=== PATIENT | male | born 1955 | race American Indian/Alaskan Native ===

== ENCOUNTER 2020-03-03 19:26 | Inpatient (IN) | payer MEDICAID ==
[2020-03-04 00:35] VITALS: BP 117/75
[2020-03-04] MEDS ORDERED: Magnesium Hydroxide (MOM) 30 mL UDC PO PRN (00:36)
[2020-03-04] MEDS ORDERED: Maalox 30 mL Cup PO PRN (00:36)
[2020-03-04] MEDS: Multivitamin Tab PO SCH ×2 (10:17→10:19)
--- NOTE | 2020-03-04 11:42 | History & Physical ---
ADMIT DATE: 03/04/2020 CHIEF COMPLAINT: Agitation. HISTORY OF PRESENT ILLNESS: We have a 64-year-old male, who is transferred from [facility] for continued management of agitation. The patient apparently is homeless. The patient was found to have encephalopathy, hypernatremia, confusion and renal insufficiency. At this time, the patient does not want to talk, but he does respond to commands. PAST MEDICAL HISTORY: Hypertension. PAST SURGICAL HISTORY: None. MEDICATIONS: List reviewed. ALLERGIES: None. SOCIAL HISTORY: Not cooperative. REVIEW OF SYSTEMS: Not cooperative. PHYSICAL EXAMINATION: VITAL SIGNS: Temperature is 97.2, pulse 80, respirations 20, blood pressure 122/78 and pulse ox is 97% on room air. HEENT: Normocephalic, atraumatic head exam. NECK: Supple. CARDIOVASCULAR: Regular rate and rhythm. LUNGS: Decreased breath sounds. ABDOMEN: Soft. EXTREMITIES: No edema, cyanosis or clubbing. NEUROLOGIC: Cranial nerves 2 through 12 was difficult to perform due to lack of cooperation. ASSESSMENT: 1. Status post encephalopathy. 2. Renal failure. 3. Hypertension. PLAN: The patient will continue with medications. The patient will continue azithromycin. The patient will continue with DuoNeb. The patient will get stat labs. JOB# [id number]
[2020-03-04 16:03] LABS: RED BLOOD COUNT 4.64 MIL/uL (4.2-6.2); WHITE BLOOD COUNT 6.2 K/uL (4.8-10.8)
[2020-03-04 16:14] LABS: % NEUTROPHILS 66.3 % (40.0-80.0); HEMOGLOBIN 14.8 gm/dL (12-16); LYMPHOCYTES % (AUTO) 22.7 % (20.0-50.0); MEAN CORPUSCULAR HEMOGLOBIN 31.8 pg (26.0-30.0); MEAN CORPUSCULAR HGB CONC 34.4 pg (28.0-36.0); MEAN CORPUSCULAR VOLUME 92.7 fl (80-99); MONOCYTES % (AUTO) 10.1 % (2.0-10.0); PLATELET COUNT 233 Th/cmm (150-400); RED CELL DISTRIBUTION WIDTH 12.2 % (11.5-20.0)
[2020-03-04 16:15] LABS: BASOPHILS % (AUTO) 0.4 % (0.0-2.0); EOSINOPHILS % (AUTO) 0.5 % (0.0-5.0); LYMPHOCYTES # (AUTO) 1.4 Th/cmm (1.5-3.0); MONOCYTES # (AUTO) 0.6 Th/cmm (0.3-1.0); NEUTROPHILS # (AUTO) 4.1 Th/cmm (1.8-8.0)
[2020-03-04 16:38] LABS: CHOLESTEROL 184 mg/dL (<200); LDL CHOLESTEROL 103 mg/dL (75-193); TRIGLYCERIDES 286 mg/dL (<150)
--- NOTE | 2020-03-04 17:54 | Psychiatric Evaluation ---
DATE OF SERVICE: 03/03/2020 PSYCHIATRIC INITIAL EVALUATION AND MENTAL STATUS EXAM AGE: 64. SEX: Male. PHYSICIAN: Dr. Gamez. CHIEF COMPLAINT: 5150 hold for grave disability, also for dangers to self. HISTORY OF PRESENT ILLNESS: The patient is a 64-year-old male who was placed on 5150 hold for grave disability. The patient was lying naked on his bathroom floor for 10 days by the landlord's report to the person who put him on a 5150 hold. Also, neighbor gave the patient food and water, but the patient not eating or drinking. The patient also stopped speaking and told the person who evaluated him that "life not worth living and I cannot make it through the day." The patient has been also living in a hotel for 2-3 years. Also, it was reported that he has been asking neighbors and landlord for a gun or knife according to the hold. Chart reviewed and the patient interviewed and discussed the patient's condition with the staff and reviewed records and labs. The patient has history of alcohol abuse. The patient is currently hardly talks and hardly gives any information about himself. Apparently, he was found down in the bathroom by the landlord and the patient was confused and the patient is still confused. He is still poor historian and I could not get any information from the patient in detail. PAST PSYCHIATRIC HISTORY: Not known. PAST MEDICAL HISTORY: The patient was admitted with altered level of conscious. He has elevated lactate and also acute renal failure as well as hypercalcemia and deep vein thrombosis. SOCIAL HISTORY: The patient said that he has never and has no family and no children. He has history of alcohol use. No other information known at this time. ALLERGIES: No known allergies. MENTAL STATUS EXAMINATION: The patient appears much older than stated age. Disheveled. Seems to be dehydrated. Thought processes are with poverty of speech and disorganized. The patient did not answer question regarding hallucinations or delusions or regarding suicide or homicide at this time, but he admitted that he wanted to kill himself and was asking people for a knife or a gun according to the hold. The patient is alert, but seems to be disoriented to time, place, person, and situation. Unable to assess his memory at this time because the patient is a poor historian and unable to answer questions. Poor insight and judgment. Unable to assess his intelligence or concentration, but his concentration seems to be much impaired and seems to be distracted. ASSESSMENT: PRIMARY DIAGNOSIS: Depressive mood disorder, unspecified. SECONDARY DIAGNOSIS: Rule out dementia. TREATMENT PLAN: We will monitor the patient's behavior and condition closely. We will start the patient on Lexapro 10 mg every day and we will monitor the dose. Also, we will try to get more information for further treatment and evaluation. ESTIMATED LENGTH OF STAY: 5-7 days. PATIENT'S STRENGTHS AND WEAKNESSES: The patient's strength is not clear at this time. Weakness is his ineffective coping and his inability to care for self. AFTER DISCHARGE PLAN: The patient will need placement and outpatient treatment and followup will continue as an outpatient. CRITERIA FOR DISCHARGE: We will stabilize his condition and the patient will not be suicidal or homicidal. JOB# [id number]
--- NOTE | 2020-03-05 07:42 | Progress Notes ---
DATE: 03/05/2020 SUBJECTIVE: A 64-year-old male placed on a hold for grave disability, was lying naked on his bathroom floor for 10 days by the landlord's report, neighbors had to give him food and water, not eating or drinking. He is not speaking, was making statements that life was not worth living and was very depressed, upset and despairing. On [id number], does not really want to talk to me, selectively mute, preoccupied, just stares at me. I spent some time trying to speak with him, but he just closes his eyes, appearing very down, depressed, per staff easily agitated, noncompliant with medications, does not want to take medications, believing medications will kill him, irritable, labile per staff. Medications were reviewed. Labs reviewed. Vitals were reviewed. Blood pressure 118/71, pulse of 83. ASSESSMENT: A 64-year-old male with ongoing behavioral disturbances, withdrawn, concerns for his ability to really function at a lower level of care and take care of himself. PLAN: We will continue inpatient monitoring. We will err on the side of caution, initiate a 14-day hold. JOB# [id number]
[2020-03-05] MEDS: Multivitamin Tab PO SCH (09:11)
[2020-03-06] MEDS: Multivitamin Tab PO SCH (09:27)
[2020-03-06 11:09] LABS: CALCIUM SERUM 8.6 mg/dL (8.4-10.2); CREATININE - SERUM 1.01 mg/dL (0.70-1.30); POTASSIUM SERUM 3.4 mmol/L (3.5-5.1); TOTAL PROTEIN,SERUM 6.5 g/dL (6.4-8.3)
[2020-03-06 11:10] LABS: BILIRUBIN,TOTAL 0.3 mg/dL (0.0-1.0)
--- NOTE | 2020-03-06 18:26 | Progress Notes ---
DATE: 03/06/2020 SUBJECTIVE: Chart was reviewed and the patient interviewed. Also discussed the patient's condition with the staff and reviewed records and labs. The patient is staying in bed all the time and he is still severely depressed. Also, during the interview, the patient had the food in front of him, but he was not eating and seems to be slightly confused at that time. The patient also is still urinating and had feces on his diapers and unable to care for himself. Also, during the interview, the patient was staring at me and he was not answering much of my questions and seems to be preoccupied and actively hallucinating. ASSESSMENT: The patient is still severely depressed and seems to be psychotic. TREATMENT PLAN: Continue to monitor behavior and condition closely. Also, continue working on his ineffective coping and adjusting his psychotropic medications and follow up closely. JOB# [id number]
[2020-03-07] MEDS: Multivitamin Tab PO SCH (09:30)
--- NOTE | 2020-03-07 19:37 | Progress Notes ---
DATE: 03/07/2020 SUBJECTIVE: Chart was reviewed and the patient interviewed. Also discussed the patient's condition with the staff and reviewed records and labs. The patient is still severely depressed. The patient also is still isolative and withdrawn and staying in his bed all the time. His appetite is still poor and he still has minimum interaction with others. The patient also still had minimum interaction and not talking much or answering questions. MENTAL STATUS EXAMINATION: Psychiatric. Depressed mood. Low tone and rate of speech. Denies any hallucinations, but seems to be preoccupied. Denies suicide or homicide, but is still unable to give any safe plan for self-care. ASSESSMENT: The patient is still depressed and is still considered to be gravely disabled. TREATMENT PLAN: Continue Lexapro same dose. Also, continue to work on his ineffective coping and follow up closely. JOB# [id number]
[2020-03-08] MEDS: Multivitamin Tab PO SCH (08:28)
--- NOTE | 2020-03-08 19:22 | Progress Notes ---
DATE: SUBJECTIVE: Chart was reviewed and the patient interviewed. Also discussed the patient's condition with the staff and reviewed records and labs. The patient is still severely depressed. The patient also is withdrawn and interacting minimally with others. The patient is still having poor appetite and is still not eating or drinking. The patient also still seems to be preoccupied and hardly answers my questions and still looks severely depressed and seems to be suspicious and paranoid. Otherwise, the patient is compliant with taking Risperdal with no side effects. ASSESSMENT: The patient is still psychotic and is still not eating or drinking. TREATMENT PLAN: We will increase Risperdal to 1 mg twice a day. Also, we will start the patient on Lexapro 10 mg every day. Also, continue to work on his ineffective coping and his hopeless and helpless feelings. Also, encouraged the patient to get out of his isolation and interact with others. JOB# [id number]
--- NOTE | 2020-03-09 06:13 | Progress Notes ---
DATE: SUBJECTIVE: Chart reviewed and the patient interviewed. Also discussed the patient's condition with the staff and reviewed records and labs. The patient is still paranoid and suspicious and severely depressed. The patient also is still selectively mute and today he tried to answer my questions, but hardly answering the questions. The patient also is still restless and still has mood swings and has paranoia. Otherwise, the patient is compliant with taking his medications with no side effects of medications. Personal hygiene is still poor and the patient is unkempt and needs close adjustment to his medications. ASSESSMENT: The patient is still psychotic and is still severely depressed and considered to be gravely disabled. TREATMENT PLAN: We will continue to monitor his medications and his condition closely. Also, yesterday, we increased Risperdal and Lexapro. We will continue same dose and continue to work on his ineffective coping and mood swings. JOB# [id number]
[2020-03-09] MEDS: Multivitamin Tab PO SCH (09:26)
[2020-03-10] MEDS: Multivitamin Tab PO SCH (10:00)
[2020-03-10 11:54] LABS: A1C 6.3
--- NOTE | 2020-03-10 15:35 | Internal Medicine Prog Note ---
Internal Medicine Subjective - Subjective Service Date: 03/10/20 Patient seen and examined:: without staff Patient is:: awake Patient Complaints of:: congestion Per staff patient has:: no adverse event, no episodes of fall Internal Medicine Objective - Results Result Diagrams: 03/04/20 13:00 03/04/20 13:00 Recent Labs: Laboratory Last Values WBC 6.2 K/uL (4.8-10.8) 03/04/20 13:00 RBC 4.64 MIL/uL (4.2-6.2) 03/04/20 13:00 Hgb 14.8 gm/dL (12-16) 03/04/20 13:00 Hct 43.0 % (41.0-60) 03/04/20 13:00 MCV 92.7 fl (80-99) 03/04/20 13:00 MCH 31.8 pg (26.0-30.0) H 03/04/20 13:00 MCHC Differential 34.4 pg (28.0-36.0) 03/04/20 13:00 RDW 12.2 % (11.5-20.0) 03/04/20 13:00 Plt Count 233 Th/cmm (150-400) 03/04/20 13:00 MPV 8.8 fl 03/04/20 13:00 Neutrophils % 66.3 % (40.0-80.0) 03/04/20 13:00 Lymphocytes % 22.7 % (20.0-50.0) 03/04/20 13:00 Monocytes % 10.1 % (2.0-10.0) H 03/04/20 13:00 Eosinophils % 0.5 % (0.0-5.0) 03/04/20 13:00 Basophils % 0.4 % (0.0-2.0) 03/04/20 13:00 Sodium 137 mmol/L (136-145) 03/04/20 13:00 Potassium 3.4 mmol/L (3.5-5.1) L 03/04/20 13:00 Chloride 100 mmol/L (98-107) 03/04/20 13:00 Carbon Dioxide 27 mmol/L (23-29) 03/04/20 13:00 Anion Gap 13 (5-15) 03/04/20 13:00 BUN 14 mg/dL (8-21) 03/04/20 13:00 Creatinine 1.01 mg/dL (0.70-1.30) 03/04/20 13:00 Glucose 92 mg/dL (70-99) 03/04/20 13:00 POC Glucose 113 MG/DL (70 - 105) H 03/03/20 23:49 Calcium 8.6 mg/dL (8.4-10.2) 03/04/20 13:00 Total Bilirubin 0.3 mg/dL (0.0-1.0) 03/04/20 13:00 AST 45 U/L (10-37) H 03/04/20 13:00 ALT 58 U/L (12-78) 03/04/20 13:00 Alkaline Phosphatase 61 U/L (46-116) 03/04/20 13:00 Total Protein 6.5 g/dL (6.4-8.3) 03/04/20 13:00 Albumin 2.9 g/dL (3.4-5.0) L 03/04/20 13:00 Triglycerides 286 mg/dL (<150) H 03/04/20 13:00 Cholesterol 184 mg/dL (<200) 03/04/20 13:00 LDL Cholesterol Direct 103 mg/dL (75-193) 03/04/20 13:00 HDL Cholesterol 30 mg/dL (23-92) 03/04/20 13:00 - Physical Exam Vitals and I&O: Vital Signs Temp 97.9 F 03/10/20 07:02 Pulse 84 03/10/20 10:00 Resp 18 03/10/20 08:00 BP 98/62 03/10/20 10:00 Pulse Ox 98 03/10/20 07:02 Intake & Output 03/09/20 03/10/20 03/10/20 18:59 06:59 18:59 Intake Total 120 Balance 120 Intake: Oral 120 Other: # Voids 2 # Bowel Movements 0 Stool Characteristics Soft Brown Active Medications: Current Medications Acetaminophen (Tylenol) 650 mg PO Q4H PRN PRN Reason: Pain (Mild 1-3) Stop: 05/03/20 00:35 Al Hydrox/Mg Hydrox/Simethicone (Maalox) 30 ml PO Q4HR PRN PRN Reason: GI DISTRESS Stop: 05/03/20 00:35 Aspirin (Ecotrin) 81 mg PO DAILY [facility] Stop: 05/04/20 08:59 Last Admin: 03/10/20 10:00 Dose: 81 mg Azithromycin (Zithromax) 500 mg PO DAILY [facility] Stop: 05/04/20 08:59 Last Admin: 03/10/20 10:00 Dose: 500 mg Docusate Sodium (Colace) 100 mg PO BID PRN PRN Reason: Constipation Stop: 05/03/20 11:27 Escitalopram Oxalate (Lexapro) 10 mg PO DAILY [facility]; Protocol Stop: 05/07/20 08:59 Last Admin: 03/10/20 10:00 Dose: 10 mg Famotidine (Pepcid) 20 mg PO HS MARISA Stop: 05/03/20 20:59 Last Admin: 03/09/20 20:51 Dose: 20 mg Isosorbide Mononitrate (Imdur) 30 mg PO DAILY [facility] Stop: 05/04/20 08:59 Last Admin: 03/10/20 10:00 Dose: Not Given Lorazepam (Ativan) 0.5 mg PO Q4HR PRN; Protocol PRN Reason: Anxiety Stop: 04/03/20 00:35 Magnesium Hydroxide (Milk Of Magnesia) 30 ml PO HS PRN PRN Reason: Constipation Multivitamins/Vitamin C (Theragran) 1 tab PO DAILY [facility] Stop: 05/03/20 08:59 Last Admin: 03/10/20 10:00 Dose: 1 tab Risperidone (Risperdal) 1 mg PO BID [facility]; Protocol Stop: 05/07/20 08:59 Last Admin: 03/10/20 10:00 Dose: 1 mg Zolpidem Tartrate (Ambien) 5 mg PO HS PRN PRN Reason: Insomnia Stop: 05/03/20 00:35 General: weak HEENT: NC/AT Neck: Supple Lungs: CTAB Cardiovascular: RRR, Normal S1, Normal S2 Abdomen: soft Extremities: clear Internal Medicine Assmt/Plan - Assessment Assessment: 1. Diarrhea 2. Psychosis - Plan Plan: transfer to acute care hospital for treat of diarrhea rule out c. diff discussed with shayne Nutritional Asmnt/Malnutr-PDOC - Dietary Evaluation Malnutrition Findings (Please click <Entered> for more info): Nutritional Asmnt/Malnutrition Start: 03/07/20 14: 18 Text: Status: Complete Freq: Protocol: Document 03/07/20 14:18 JAYDON (Rec: 03/07/20 14:23 JAYDON [id number]) Nutritional Asmnt/Malnutrition Patient General Information Nutritional Screening Moderate Risk Diagnosis Psychosis Pertinent Medical Hx/Surgical Hx HTN Subjective Information Pt is a 64-year-old male admitted on 09/13 d/t continued management of agitation. Pt is noted to have been refusing most meals since admit date, eating 100% snacks, sometimes eating by self and sometimes with assistance. Dietary is currently providing an estimated 2500 kcals and 108 gm Pro. Pt receiving Ensure Enlive BID at lunch and dinner time. Visited pt in room, pt stated he has only been drinking the ensure on his tray and does not have an appetite to eat. When asked for some of his favorite foods to eat, pt did not respond, only stating he had no appetite. Pt did state he is eating the sandwiches at snack. Educated pt on the importance of eating for his overall health and that the ensure is not enough to keep him healthy. Will continue to monitor PO intake. Let pt know we will be trying to check his weight today, pt said OK- will update estimated nutritional needs if appropriate when weight is current. Pt was curled up under the blanket, will try to perform a nutrition focused physical examination when pt is up to it. Anthropometrics HT: 6 FT WT: 140 LB (63.64 kg) BMI: 19.03 (normal) GI/ Skin Integrity GI: WNL, Soft, Flat, Non- tender BM: 03/06 x1 I/O: 1120/Not Noted Skin: WNL, dryness Federico: 15 Diet Order: Cardiac, MAY Estimated Energy Needs: ( Geriatric, CBW) 2976-9223 kcals (25-30 kcals/ kg) 65-75g Pro (1.0-1.2 g/kg) 4073-6409 ml (25-30 ml/kg) Current Diet Order/ Nutrition Support Cardiac, MAY Patient / S.O Can Pertinent Medications Maalox (PRN), Colace (PRN), Pepcid, MOM (PRN), Theragran Pertinent Labs 03/04: K 3.4, Alb 2.9, AST 45, Triglycerides 286 03/03: POC Glucose: 113 Nutritional Hx/Data Height 1.83 m Height (Calculated Centimeters) 182.9 Current Weight (lbs) 63.503 kg Weight (Calculated Kilograms) 63.5 Weight (Calculated Grams) 97747.9 [place] Body Weight 178 LB (80.91 kg) % [place] Body Weight 79 Body Mass Index (BMI) 19.0 Weight Status Approriate GI Symptoms Last BM 03/06 x1 Skin Integrity/Comment: Skin: WNL, dryness Federico: 15 Estimated Nutritional Goals BEE in Kcals: Using Current wt Calories/Kcals/Kg 25-30 Kcals Calculated 2839-9528 Protein: Using Current wt Protein g/k.0-1.2 Protein Calculated 65-75 Fluid: ml 5153-9540 ml (25-30 ml/kg) Nutritional Problem 1. Problem Problem Predicted suboptimal energy- protein intake Etiology r/t inadequate nutritional intake Signs/Symptoms: aeb pt consistent refusal of meals and report of being homeless. Intervention/Recommendation Comments 1.Continue Cardiac, MAY diet as tolerated. 2.Continue Ensure Enlive BID. 3.Weekly weight checks. Expected Outcomes/Goals Expected Outcomes/Goals 1.PO intake to meet 75% of estimated nutritional needs. 2.Monitor PO intake, wt, nutrition related labs, and skin integrity. 3.F/U as high risk in 2-3 days , 03/09-03/10.
--- NOTE | 2020-03-10 18:32 | Progress Notes ---
DATE: 03/10/2020 SUBJECTIVE: Chart was reviewed and the patient interviewed. Also discussed the patient's condition with the staff and reviewed the records and labs. "Can I have more Ensure." The patient's affect is slightly brighter. The patient is interacting more and he is also still disheveled and seems to be dehydrating, but he started to eat and started to talk a little bit more. He is still feeling hopeless, but he is saying that he is "hungry." It seemed that the patient's level of depression is slightly decreased. He denies any intention to harm himself or others. ASSESSMENT: The patient is still depressed, but showing some improvement. TREATMENT PLAN: Continue to monitor behavior and condition closely. Also, continue to work on his ineffective coping. Also, continue to work on placement issue and discharge plans. JOB# [id number]
--- NOTE | 2020-03-12 02:01 | Progress Notes ---
DATE: SUBJECTIVE: Chart was reviewed and reviewed records and labs and also discussed the patient's condition with the staff. The patient had C. diff and the patient was transferred to [facility] for evaluation. The patient is still in [facility] and is not demoted yet and not sure if he was going to be kept in [place] or he will be returned to the hospital. At the same time, the patient continued to compliant with taking medications and appetite was better. The patient also was not suicidal and he was eating better. We will wait for the outcome of [facility]. JOB# [id number]
--- NOTE | 2020-03-17 22:23 | Discharge Summary ---
DATE OF DISCHARGE: 03/10/2020 AGE: 64. SEX: Male. PHYSICIAN: Dr. Gamez. PRIMARY DIAGNOSIS: Depressive mood disorder, unspecified. REASON FOR HOSPITALIZATION: The patient was admitted to the hospital on a 5150 hold for grave disability after the patient was lying naked on his bathroom floor for 10 days, still found by the landlord, according to the landlord reports. HOSPITAL COURSE: The patient was depressed and anxious. The patient also was weak and was not eating. The patient also is not able to give any information about himself. Also, was feeling hopeless and helpless. The patient was started on Lexapro and the dose was adjusted to 10 mg every day and also was given Risperdal and dose adjusted to 1 mg twice a day. The patient continued to be dehydrated and not eating and Dr. Mauricio transferred the patient to [facility] in order to have regular medical care and to monitor his medical condition closely. The patient had no major medical problems while in the hospital except that he was not eating or drinking and seems to be getting dehydrated. AFTER DISCHARGE PLANS: The patient was discharged from the hospital to [facility] for medical treatment and clearance. DISCHARGE ACTIVITY: As per [facility]. DISCHARGE DIET: As per [facility]. EXPECTED OUTCOME AFTER DISCHARGE: Depends on hospital course in [facility]. JOB# [id number]
== END 2020-03-10 16:30 | disposition short-term general hospital (02) | DRG 881 ==
LOC: GERO 23:30
PROVIDERS: ADMIT Psychiatry & Neurology Psychiatry; ATTEND Psychiatry & Neurology Psychiatry
DX: F32.9 Major depressive disorder, single episode, unspecified (principal); N17.9 Acute kidney failure, unspecified; G93.40 Encephalopathy, unspecified; E87.0 Hyperosmolality and hypernatremia; F29 Unspecified psychosis not due to a substance or known physiological condition; R19.7 Diarrhea, unspecified; I10 Essential (primary) hypertension; Z59.0 Homelessness; Z79.899 Other long term (current) drug therapy
CPT/HCPCS: 36415-UA; 80053-TC; 80061-TC; 82948-90; 83036-90; 85025-TC; 87230-TC; Z7610